=== PATIENT | female | born 1990 | race Caucasian/White ===

== ENCOUNTER 2016-07-28 12:22 | Emergency (ER) | payer MEDICAID ==
[~2016-07-28] VITALS: Ht 160 cm; Wt 64.9 kg
[2016-07-28 12:27] VITALS: BP 115/64
== END 2016-07-28 13:03 | disposition home or self-care (01) ==
LOC: ER 12:24
DX: O99.012 Anemia complicating pregnancy, second trimester (principal); Z3A.27 27 weeks gestation of pregnancy
CPT/HCPCS: 93005

== ENCOUNTER → 2016-07-29 | Outpatient (CLI) | payer MEDICAID ==
[2016-07-29 10:18] LABS: Basophils # (auto) 0 uL; Basophils % (auto) 0.1 % (0.0-2.0); Eosinophils # (auto) 0.2 uL; Eosinophils % (auto) 1.6 % (0.0-7.0); Hemoglobin 11.4 g/dL (12.2-16.2); Lymphocytes % (auto) 18.6 % (10.0-50.0); Mean Corpuscular Hgb Conc. 32.5 g/dL (32.0-36.0); Mean Corpuscular Volume 89.3 fL (80.0-100.0); Mean Platelet Volume 8.3 fL (7.4-10.4); Monocytes # (auto) 0.7 uL; Neutrophils % (auto) 73.7 % (37.0-80.0); Platelet Count (auto) 247 10^3/uL (140-450); Red Cell Distribution Width 16.1 % (11.6-16.0); White Blood Cell 10.9 10^3/uL (4.4-10.8)
== END | disposition home or self-care (01) ==
LOC: LAB 10:00
PROVIDERS: ATTEND Specialist
DX: O99.810 Abnormal glucose complicating pregnancy (principal); Z34.00 Encounter for supervision of normal first pregnancy, unspecified trimester
CPT/HCPCS: 36415; 82951; 85025; 85049

== ENCOUNTER → 2016-08-01 | Outpatient (CLI) | payer MEDICAID | END | disposition home or self-care (01) | LOC: LAB 13:20 | PROVIDERS: ATTEND Specialist | DX: Z34.80 Encounter for supervision of other normal pregnancy, unspecified trimester (principal); R55 Syncope and collapse | CPT/HCPCS: 36415; 84439; 84443; 84481 ==

== ENCOUNTER → 2016-09-03 | Outpatient (CLI) | payer MEDICAID | END | disposition home or self-care (01) | LOC: LAB 14:29 | PROVIDERS: ATTEND Obstetrics & Gynecology | DX: Z34.00 Encounter for supervision of normal first pregnancy, unspecified trimester (principal) | CPT/HCPCS: 36415; 83036; 84439; 84443; 84481 ==

== ENCOUNTER 2016-10-07 18:28 | Observation (INO) | payer MEDICAID | END 2016-10-07 19:47 | disposition home or self-care (01) | DRG 566 | LOC: LDRP 18:28 | PROVIDERS: ADMIT Obstetrics & Gynecology; ATTEND Obstetrics & Gynecology | DX: O26.893 Other specified pregnancy related conditions, third trimester (principal); R10.2 Pelvic and perineal pain; R10.9 Unspecified abdominal pain; Z3A.37 37 weeks gestation of pregnancy | CPT/HCPCS: 59025; 81002; G0378 ==

== ENCOUNTER → 2016-10-23 | Outpatient (CLI) | payer MEDICAID ==
[~2016-10-23] MED LIST: CARB45TA PO; FERR-7 PO
[2016-10-23 10:18] LABS: Basophils # (auto) 0 uL; Basophils % (auto) 0.3 % (0.0-2.0); Eosinophils # (auto) 0.6 uL; Eosinophils % (auto) 4.2 % (0.0-7.0); Hematocrit 28.1 % (36.0-46.0); Hemoglobin 9.3 g/dL (12.2-16.2); Lymphocytes # (auto) 2.5 uL; Lymphocytes % (auto) 17.5 % (10.0-50.0); Mean Corpuscular Hemoglobin 28.6 pg (28.0-32.0); Mean Corpuscular Hgb Conc. 32.9 g/dL (32.0-36.0); Mean Platelet Volume 7.2 fL (7.4-10.4); Monocytes # (auto) 0.7 uL; Monocytes % (auto) 4.8 % (0.0-12.0); Neutrophils # (auto) 10.4 uL; Neutrophils % (auto) 73.2 % (37.0-80.0); Platelet Count (auto) 579 10^3/uL (140-450); Red Cell Distribution Width 15.2 % (11.6-16.0); White Blood Cell 14.2 10^3/uL (4.4-10.8)
[2016-10-23 10:43] LABS: BUN/Creatinine Ratio 23.8; Bilirubin, Total 0.2 mg/dL (0.2-1.0); Calcium 8.6 mg/dL (8.5-10.1); Potassium 4.1 mmol/L (3.5-5.1); Total Protein 7.6 g/dL (6.4-8.2)
== END | disposition home or self-care (01) ==
LOC: LAB 09:29
PROVIDERS: ATTEND Specialist
DX: T78.40XA Allergy, unspecified, initial encounter (principal)
CPT/HCPCS: 36415; 80053; 85025

== ENCOUNTER 2025-05-27 17:28 | Inpatient (IN) | payer MEDICAID ==
[~2025-05-27] VITALS: Ht 160 cm; Wt 62.8 kg
[2025-05-27] MEDS: ACETAMINOPHEN 325 MG TAB PO ONE (17:45)
--- NOTE | 2025-05-27 18:08 | ED.PDOC ---
History of Present Illness HPI Comments 34 y.o female presents to the ED for a chief complaint of ongoing productive cough associated with congestion and a fever that started on 05/19/25. Patient reports she was seen 4 days after symptoms presented, states she was given medication however states symptoms have worsened. She states she is unable to ge t herself out of bed, cough has became persistent, and have heavy labored breathing. Additionally, she mentions menstrual cycle is irregular this month which is new onset as she is always regular. She mentions starting her menstrual cycle on 05/06/25- 05/11/25 and then again on /- . Chief Complaint: Flu like Time Seen by MD: 17:47 Primary Care Provider: JAMAAL Reviewed Notes: Nurses Notes, Medications, Allergies Allergies: Coded Allergies: Penicillins (Verified Allergy, Unknown, 05/27/25) Home Meds Reported Medications Iron (Feosol) 45 Mg Tab, 45 MG PO, TAB 10/14/16 Ferrous Sulfate (Iron) 325 Mg Tab, 325 MG PO, TAB 10/14/16 Information Source: Patient Mode of Arrival: Ambulatory Severity: Moderate Timing: Weeks Duration: Since onset Past Medical History PAST MEDICAL HISTORY: Denies Surgical History: Denies all surgeries LAY MIDWIFE History: No Pertinent LAY MIDWIFE History Family History Family History: Unobtainable Social History Smoker: Non-Smoker Alcohol: Denies ETOH Use Drugs: Denies Drug Use Lives In: Home Constitutional: reports: malaise; denies: chills, diaphoresis, fatigue, fever, sweats, weakness, others EENTM: denies: blurred vision, double vision, ear bleeding, ear discharge, ear drainage, ear pain, ear ringing, eye pain, eye redness, hearing loss, mouth pain, mouth swelling, nasal discharge, nose bleeding, nose congestion, nose pain, photophobia, tearing, throat pain, throat swelling, voice changes, others Respiratory: reports: cough; denies: hemoptysis, orthopnea, SOB at rest, shortness of breath, SOB with excertion, stridor, wheezing, others Cardiovascular: denies: chest pain, dizzy spells, diaphoresis, Dyspnea on exertion, edema, irregular heart beat, left arm pain, lightheadedness, palpitations, PND, syncope, others Gastrointestinal: denies: abdomen distended, abdominal pain, blood streaked bowels, constipated, diarrhea, dysphagia, difficulty swallowing, hematemesis, melena, nausea, poor appetite, poor fluid intake, rectal bleeding, rectal pain, vomiting, others Genitourinary: reports: abnormal vagina bleeding; denies: burning, dyspareunia, dysuria, flank pain, frequency, hematuria, incontinence, pain, , vagina discharge, urgency, others Neurological: denies: dizziness, fainting, headache, left sided numbness, left sided weakness, numbness, paresthesia, pre-existing deficit, right sided numbness, right sided weakness, seizure, speech problems, tingling, tremors, weakness, others Musculoskeletal: denies: back pain, gout, joint pain, joint swelling, muscle pain, muscle stiffness, neck pain, others Integumetry: denies: bruises, change in color, change in hair/nails, dryness, laceration, lesions, lumps, rash, wounds, others Allergic/Immunocompromised: denies: Difficulty Healing, Frequent Infections, Hives, Itching, others Hematologic/Lymphatic: denies: anemia, blood clots, easy bleeding, easy bruising, swollen glands, others Endocrine: denies: excessive hunger, excessive sweating, excessive thirst, excessive urination, flushing, intolerance to cold, intolerance to heat, unexplained weight gain, unexplained weight loss, others Psychiatric: denies: anxiety, bipolar disorder, depression, hopeless, panic disorder, schizophrenia, sleepless, suicidal, others All Other Systems: Reviewed and Negative Physical Exam General Appearance: No Apparent Distress, Normal HEENT: Normal ENT Inspection, Pharynx Normal, TMs Normal Neck: Full Range of Motion, Non-Tender, Normal, Normal Inspection Respiratory: Chest Non-Tender, Lungs Clear, No Accessory Muscle Use, No Respiratory Distress, Normal Breath Sounds Cardiovascular: No Edema, No JVD, No Murmur, No Gallop, Normal Peripheral Pulses, Regular Rate/Rhythm Breast Exam: Deferred Gastrointestinal: No Organomegaly, Non Tender, No Pulsatile Mass, Normal Bowel Sounds, Soft Genitalia: Deferred Pelvic: Deferred Rectal: Deferred Extremities: No calf tenderness, Normal capillary refill, Normal inspection, Normal range of motion, Non-tender, No pedal edema Musculoskeletal : Apperance: Normal Neurologic: Alert, production tech II-XII nml as Tested, No Motor Deficits, Normal Affect, Normal Mood, No Sensory Deficits Cerebellar Function: Normal Reflexes: Normal Skin: Dry, Normal Color, Warm Lymphatic: No Adenopathy Was a procedure done? Was a procedure done?: No Differential Dx Considerations may include: Viral syndrome, Dehydration, bronchitis, pneumonia, influenza X-Ray, Labs, Meds, VS Vital Signs Date Time Temp Pulse Resp B/P (MAP) Pulse Ox O2 Delivery O2 Flow Rate FiO2 05/27/25 17:45 100.7 05/27/25 17:31 100.7 106 18 117/71 93 100.7 Lab Test 05/27/25 18:19 Range/Units White Blood Count 6.8 4.4-10.8 10^3/uL Red Blood Count 4.57 4.0-5.20 10^6/uL Hemoglobin 12.5 12.2-16.2 g/dL Hematocrit 37.2 36.0-46.0 % Mean Corpuscular Volume 81.3 80.0-100.0 fL Mean Corpuscular Hemoglobin 27.2 L 28.0-32.0 pg Mean Corpuscular Hemoglobin Concent 33.5 32.0-36.0 g/dL Red Cell Distribution Width 15.2 H 11.8-14.3 % Platelet Count 325 140-450 10^3/uL Mean Platelet Volume 9.0 6.9-10.8 fL Neutrophils (%) (Auto) 84.7 H 37.0-80.0 % Lymphocytes (%) (Auto) 8.9 L 10.0-50.0 % Monocytes (%) (Auto) 5.8 0.0-12.0 % Eosinophils (%) (Auto) 0.2 0.0-7.0 % Basophils (%) (Auto) 0.4 0.0-2.0 % Neutrophils # (Auto) 5.8 1.6-8.6 10 ^3/uL Lymphocytes # (Auto) 0.6 0.4-5.4 10 ^3/uL Monocytes # (Auto) 0.4 0-1.3 10 ^3/uL Eosinophils # (Auto) 0 0-0.8 10 ^3/uL Basophils # (Auto) 0 0-0.2 10 ^3/uL Nucleated Red Blood Cells 0.2 % Sodium Level 135 L 136-145 mmol/L Potassium Level 4.1 3.5-5.1 mmol/L Chloride Level 94 L 98-107 mmol/L Carbon Dioxide Level 28 20-31 mmol/L Anion Gap 13 5-15 Blood Urea Nitrogen 10 9-23 mg/dL Creatinine 0.83 0.550-1.02 mg/dL Glomerular Filtration Rate Calc 95 >90 mL/min BUN/Creatinine Ratio 12.0 10.0-20.0 Serum Glucose 100 74-106 mg/dL Lactic Acid Level 1.3 0.4-2.0 mmol/L Calcium Level 9.1 8.7-10.4 mg/dL Troponin I High Sensitivity < 3 L </=34 ng/L Current Medications Medications (Trade) Dose Ordered Sig/Thierno Route Start Time Stop Time Status Last Admin Sodium Chloride 1,000 ml @ 1,000 mls/hr Q1H ONCE IV 05/27/25 18:00 05/27/25 18:59 DC 05/27/25 18:39 Ondansetron HCl (Zofran) 4 mg ONCE ONCE IV 05/27/25 18:00 05/27/25 18:02 DC 05/27/25 18:41 Sodium Chloride 1,000 ml @ 1,000 mls/hr Q1H ONCE IV 05/27/25 18:00 05/27/25 18:59 DC 05/27/25 19:53 Ceftriaxone Sodium 50 ml @ 100 mls/hr ONCE ONCE IV 05/27/25 18:00 05/27/25 18:29 DC 05/27/25 18:41 Acetaminophen (Ofirmev) 1,000 mg ONCE ONCE IV 05/27/25 18:00 05/27/25 18:02 DC 05/27/25 18:45 Time of 1ST Reevaluation: 18:07 Reevaluation 1ST: Unchanged Patient Education/Counseling: Diagnosis, Treatment, Prognosis Family Education/Counseling: No Family Present SEPSIS Sepsis Screen Date sepsis recognized/suspect: May 27, 2025 Time Sepsis recognized/suspect: 1730 Recent Procedure: No On Antibiotic Therapy: No Respiratory Rate >20: No Heart Rate >90: Yes Temp<36 C (96.8 F) or >38.3 C: Yes SBP <90 or MAP <65 mmHG: No New Acute Mental Status Change: No Is the patient on CPAP, BIPAP,: No Physician Orders Urinalysis (05/27/25 17:58) Blood Culture (05/27/25 17:58) Test, Urine (05/27/25 17:58) Chest Portable (05/27/25 20:01) Vital Signs Date Time Temp Pulse Resp B/P (MAP) Pulse Ox O2 Delivery O2 Flow Rate FiO2 05/27/25 17:45 100.7 05/27/25 17:31 100.7 106 18 117/71 93 100.7 Laboratory Tests Test 05/27/25 18:19 Lactic Acid Level 1.3 mmol/L (0.4-2.0) White Blood Count 6.8 10^3/uL (4.4-10.8) Medications Medications Dose Ordered Sig/Thierno Route Start Time Stop Time Status Last Admin Dose Admin Acetaminophen 1,000 mg ONCE ONCE IV 05/27/25 18:00 05/27/25 18:02 DC 05/27/25 18:45 Ceftriaxone Sodium 50 ml @ 100 mls/hr ONCE ONCE IV 05/27/25 18:00 05/27/25 18:29 DC 05/27/25 18:41 Ondansetron HCl 4 mg ONCE ONCE IV 05/27/25 18:00 05/27/25 18:02 DC 05/27/25 18:41 Sodium Chloride 1,000 ml @ 1,000 mls/hr Q1H ONCE IV 05/27/25 18:00 05/27/25 18:59 DC 05/27/25 18:39 Sodium Chloride 1,000 ml @ 1,000 mls/hr Q1H ONCE IV 05/27/25 18:00 05/27/25 18:59 DC 05/27/25 19:53 Departure 1 Departure Time of Disposition: 20:02 (Feel with a intractable fever and cough. Patient does not appear septic. Patient with multiple ER visits in the continues to worsen. We will admit patient for further workup and expert consultation) Impression: Primary Impression: Fever Additional Impressions: Generalized weakness Cough Pneumonia due to suspected gram-negative bacteria Disposition: ADMITTED INPATIENT Admit to: Med Surg Condition: Guarded Critical Care Note Critical Care Time?: No Stability Stability form required: No I personally scribed for BESS ESTRADA MD ([email or web address]) on 05/27/25 at 18:08. Electronically submitted by Simran Sanders ([facility]). BESS ESTRADA MD May 27, 2025 18:08
[2025-05-27] MEDS: ONDANSETRON HCL 4 MG/2 ML VIAL ONE (18:38)
[2025-05-27] MEDS: SODIUM CHLORIDE 0.9% 1,000 ML IV ONE ×2 (18:39→19:53)
[2025-05-27] MEDS: ONDANSETRON HCL 4 MG/2 ML VIAL IV ONE (18:41)
[2025-05-27] MEDS: ACETAMINOPHEN IV 100 ML IV ONE (18:45)
[2025-05-27] MEDS: ACETAMINOPHEN IV 1000 MG/100ML (10MG/ML) IV ONE (18:45)
[2025-05-27 19:00] LABS: Hematocrit 37.2 % (36.0-46.0); Hemoglobin 12.5 g/dL (12.2-16.2); Mean Corpuscular Hemoglobin 27.2 pg (28.0-32.0); Mean Corpuscular Volume 81.3 fL (80.0-100.0); Nucleated Red Blood Cells % 0.2 %
[2025-05-27 19:06] LABS: Potassium 4.1 mmol/L (3.5-5.1)
[2025-05-27 19:07] LABS: Anion Gap 13 (5-15); Carbon Dioxide 28 mmol/L (20-31)
[2025-05-27 19:08] LABS: Calcium 9.1 mg/dL (8.7-10.4)
[2025-05-27 19:12] LABS: BUN/Creatinine Ratio 12.0 (10.0-20.0); Blood Urea Nitrogen 10 mg/dL (9-23); Glucose 100 mg/dL (74-106)
[2025-05-27 19:27] LABS: Chloride 94 mmol/L (98-107); Sodium 135 mmol/L (136-145)
[2025-05-27 20:29] LABS: Urine Protein, UAD TRACE (Negative)
--- NOTE | 2025-05-27 21:02 | DVH ---
CHEST RADIOGRAPH Indication: cough Technique: Single frontal view of the chest was obtained COMPARISON: None FINDINGS: Focal airspace disease within the left mid to lower lung likely within the left lower lobe. Trace left-sided pleural effusion. Right lung is clear. Cardiac silhouette and ad are within normal limits. Bones and soft tissues demonstrate no significant abnormality. IMPRESSION: Left lower lobe pneumonia.
--- NOTE | 2025-05-27 22:49 | DVHHPRES ---
History of Present Illness Resident Creating Document: TATI KILLIAN RESIDENT History of Present Illness 34-year-old female presents to the ER with a chief complaint of fever, chills, productive cough for the past week. Patient reports that she started to experience fever, chills, hot and cold, along with muscle aches, bilateral knee pain, shooting pains, which worsened and patient started to experience cough with whitish phlegm. She does not have a PCP, she went to the urgent care was prescribed steroids and cough suppressant which he never took. She denies any traveling history, recent sick contacts or anyone sick at home. Denies orthopnea or PND. Also reports suprapubic pain on coughing but no dysuri a, discharge or foul-smelling. Also reports irregular periods for the 1st time during the sickness episode, currently she is spotting Past medical history: Denies past surgical history: Denies Home medication: Denies PCP: None Social history: Denies smoking, drug use, alcohol use Patient seen and examined. No acute distress. Review of Systems Respiratory: Cough, Shortness of breath Allergies: Coded Allergies: Penicillins (Verified Allergy, Unknown, 05/27/25) Exam Vital Signs Vital Signs Date Time Temp Pulse Resp B/P (MAP) Pulse Ox O2 Delivery O2 Flow Rate FiO2 05/27/25 17:45 100.7 05/27/25 17:31 106 18 117/71 93 General Appearance: Alert, Oriented X3, Cooperative, No acute distress HEENT: Atraumatic Respiratory: Clear to auscultation, Normal air movement Cardiovascular: Normal S1 (Tachycardic) Abdominal: Normal bowel sounds, No tenderness Extremities: No edema Labs/Xrays Labs Test 05/27/25 18:19 05/27/25 18:11 Range/Units White Blood Count 6.8 4.4-10.8 10^3/uL Red Blood Count 4.57 4.0-5.20 10^6/uL Hemoglobin 12.5 12.2-16.2 g/dL Hematocrit 37.2 36.0-46.0 % Mean Corpuscular Volume 81.3 80.0-100.0 fL Mean Corpuscular Hemoglobin 27.2 L 28.0-32.0 pg Mean Corpuscular Hemoglobin Concent 33.5 32.0-36.0 g/dL Red Cell Distribution Width 15.2 H 11.8-14.3 % Platelet Count 325 140-450 10^3/uL Mean Platelet Volume 9.0 6.9-10.8 fL Neutrophils (%) (Auto) 84.7 H 37.0-80.0 % Lymphocytes (%) (Auto) 8.9 L 10.0-50.0 % Monocytes (%) (Auto) 5.8 0.0-12.0 % Eosinophils (%) (Auto) 0.2 0.0-7.0 % Basophils (%) (Auto) 0.4 0.0-2.0 % Neutrophils # (Auto) 5.8 1.6-8.6 10 ^3/uL Lymphocytes # (Auto) 0.6 0.4-5.4 10 ^3/uL Monocytes # (Auto) 0.4 0-1.3 10 ^3/uL Eosinophils # (Auto) 0 0-0.8 10 ^3/uL Basophils # (Auto) 0 0-0.2 10 ^3/uL Nucleated Red Blood Cells 0.2 % Sodium Level 135 L 136-145 mmol/L Potassium Level 4.1 3.5-5.1 mmol/L Chloride Level 94 L 98-107 mmol/L Carbon Dioxide Level 28 20-31 mmol/L Anion Gap 13 5-15 Blood Urea Nitrogen 10 9-23 mg/dL Creatinine 0.83 0.550-1.02 mg/dL Glomerular Filtration Rate Calc 95 >90 mL/min BUN/Creatinine Ratio 12.0 10.0-20.0 Serum Glucose 100 74-106 mg/dL Lactic Acid Level 1.3 0.4-2.0 mmol/L Calcium Level 9.1 8.7-10.4 mg/dL Troponin I High Sensitivity < 3 L </=34 ng/L Urine Color Yellow Yellow Urine Clarity Clear Clear Urine pH 7.5 5.0-9.0 Urine Specific [place] 1.015 1.001-1.035 Urine Protein Trace H Negative Urine Ketones Trace Negative Urine Blood 2+ H Negative /uL Urine Nitrite Negative Negative Urine Bilirubin Negative Negative Urine Urobilinogen Normal Negative mg/dL Urine Leukocyte Esterase 2+ Negative /uL Urine RBC 1 0 - 4 /hpf Urine Microscopic WBC 16 H 0-5 /HPF Urine Squamous Epithelial Cells Few <5 /hpf Urine Bacteria None seen None Seen /hpf Urine Glucose Normal Normal mg/dL Urine Test Negative Negative SEPSIS Sepsis Screen Date sepsis recognized/suspect: May 27, 2025 Time Sepsis recognized/suspect: 1730 Recent Procedure: No On Antibiotic Therapy: No Respiratory Rate >20: No Heart Rate >90: Yes Temp<36 C (96.8 F) or >38.3 C: Yes SBP <90 or MAP <65 mmHG: No New Acute Mental Status Change: No Is the patient on CPAP, BIPAP,: No Physician Orders Blood Culture (05/27/25 17:58) Chest Portable (05/27/25 20:01) Vital Signs Date Time Temp Pulse Resp B/P (MAP) Pulse Ox O2 Delivery O2 Flow Rate FiO2 05/27/25 17:45 100.7 05/27/25 17:31 100.7 106 18 117/71 93 100.7 Laboratory Tests Test 05/27/25 18:19 Lactic Acid Level 1.3 mmol/L (0.4-2.0) White Blood Count 6.8 10^3/uL (4.4-10.8) Medications Medications Dose Ordered Sig/Thierno Route Start Time Stop Time Status Last Admin Dose Admin Acetaminophen 1,000 mg ONCE ONCE IV 05/27/25 18:00 05/27/25 18:02 DC 05/27/25 18:45 1,000 MG Ceftriaxone Sodium 50 ml @ 100 mls/hr ONCE ONCE IV 05/27/25 18:00 05/27/25 18:29 DC 05/27/25 18:41 100 MLS/HR Ondansetron HCl 4 mg ONCE ONCE IV 05/27/25 18:00 05/27/25 18:02 DC 05/27/25 18:41 4 MG Sodium Chloride 1,000 ml @ 1,000 mls/hr Q1H ONCE IV 05/27/25 18:00 05/27/25 18:59 DC 05/27/25 18:39 1,000 MLS/HR Sodium Chloride 1,000 ml @ 1,000 mls/hr Q1H ONCE IV 05/27/25 18:00 05/27/25 18:59 DC 05/27/25 19:53 1,000 MLS/HR Assessment/Plan Assessment/Plan Sepsis secondary to pneumonia, Gram-positive and negative Ruled out COVID influenza Continue IV ceftriaxone, azithromycin COVID/influenza negative Duo nebs Respiratory culture, blood culture ordered Chest x-ray shows left lower opacity Abnormal uterine bleeding Pelvic ultrasound Monitor H&H Needs PCP: Consult neonatal intensive care nurse Regular diet Plan discussed with patient, mother at bedside in which all questions have been answered Case discussed with Dr. Colunga Plan discussed with: Patient Date of Service: May 27, 2025 Billing Provider: JOHN COLUNGA MD Common Visit Codes: [id number] INP/OBS CARE (HIGH) TATI KILLIAN RESIDENT May 27, 2025 22:49
[2025-05-27] MEDS: AZITHROMYCIN 500MG/250ML 250 ML IV ONE (23:57)
[2025-05-28] VITALS (17 sets, daily range): BP systolic 96–129; BP diastolic 56–72; PULSE 78–115; RESP 14–20; TEMP 97.8–102.8; O2SAT 92–100
[2025-05-28 01:02] LABS: COVID19 ANTIGEN SOFIA FIA NEGATIVE (NEGATIVE)
[2025-05-28] MEDS ORDERED: ACETAMINOPHEN 500 MG TAB or CAP PO PRN (01:30)
[2025-05-28] MEDS ORDERED: MORPHINE SULFATE INJ 2 MG/ml SYRG IV PRN (01:30)
[2025-05-28] MEDS ORDERED: HYDROcodone-ACET 5/325MG TAB PO PRN (01:30)
[2025-05-28] MEDS: AZITHROMYCIN 500MG/250ML 250 ML IV ONE ×2 (01:37→09:32)
[2025-05-28] MEDS ORDERED: ALBUTEROL SULF 2.5 MG/0.5ML(0.5%) NEB SOLN NEB SCH (02:00)
[2025-05-28] MEDS ORDERED: IPRATROPIUM BROM 0.5 MG/2.5ML INH SOL NEB SCH (02:00)
[2025-05-28] MEDS: ACETAMINOPHEN 325 MG TAB PO ONE ×2 (06:18→06:31)
[2025-05-28 08:32] LABS: INR 1.13 (0.9-1.15); Partial Thromboplastin Time 30.7 SEC (24.5-34.5); Prothrombin Time 11.8 sec (9.3-11.8)
[2025-05-28 08:35] LABS: Alanine Aminotransferase 11 U/L (7-40); Albumin 3.5 g/dL (3.2-4.8); Alkaline Phosphatase 52 U/L (46-116); Anion Gap 13 (5-15); BUN/Creatinine Ratio 9.4 (10.0-20.0); Blood Urea Nitrogen 6 mg/dL (9-23); Calcium 8.0 mg/dL (8.7-10.4); Carbon Dioxide 27 mmol/L (20-31); Chloride 99 mmol/L (98-107); Glucose 93 mg/dL (74-106); Magnesium 2.1 mg/dL (1.6-2.6); Potassium 3.1 mmol/L (3.5-5.1); Sodium 139 mmol/L (136-145); Total Protein 6.5 g/dL (5.7-8.2)
[2025-05-28 08:36] LABS: Bilirubin, Total 0.3 mg/dL (0.2-1.0)
[2025-05-28] MEDS: IPRATROPIUM BROM 0.5 MG/2.5ML INH SOL NEB SCH (09:07)
[2025-05-28] MEDS: ALBUTEROL SULF 2.5 MG/0.5ML(0.5%) NEB SOLN NEB SCH (09:07)
[2025-05-28] MEDS: AZITHROMYCIN 500MG/250ML 250 ML IV SCH (09:45)
[2025-05-28] MEDS: POTASSIUM EFFERVESENT TAB 25 MEQ ONE (09:48)
[2025-05-28] MEDS: POTASSIUM EFFERVESENT TAB 25 MEQ PO ONE (09:53)
[2025-05-28 10:14] LABS: Hematocrit 30.1 % (36.0-46.0); Hemoglobin 10.2 g/dL (12.2-16.2); Mean Corpuscular Hemoglobin 27.4 pg (28.0-32.0); Mean Corpuscular Volume 80.8 fL (80.0-100.0); Nucleated Red Blood Cells % 0.1 %
[2025-05-28] MEDS: DOXYCYCLINE 100MG/100ML 100 ML IV ONE (13:36)
[2025-05-28] MEDS: DOXYCYCLINE 100MG/100ML 100 ML IV SCH (14:17)
--- NOTE | 2025-05-28 14:43 | DVHPNRES ---
Progress Note Date Seen: May 28, 2025 Resident Creating Document: GRISEL ALFONSO RESDIENT Medical Necessity Reason Pt with a Central, PICC or Fol: No Subjective Review of Systems 34-year-old female presents to the ER with a chief complaint of fever, chills, productive cough for the past week. Patient reports that she started to experience fever, chills, hot and cold, along with muscle aches, bilateral knee pain, shooting pains, which worsened and patient started to experience cough with whitish phlegm. She does not have a PCP, she went to the urgent care was prescribed steroids and cough suppressant which he never took. She denies any traveling history, recent sick contacts or anyone sick at home. Denies orthopnea or PND. Also reports suprapubic pain on coughing but no dysuria, discharge or foul-smelling. Also reports irregular periods for the 1st time during the sickness episode, currently she is spotting Past medical history: Denies past surgical history: Denies Home medication: Denies PCP: None Social history: Denies smoking, drug use, alcohol use On 05/28, the patient is seen and examined at the bedside. Patient is feeling better since admission but still complaining of cough and generalized body pain. Objective vital signs Vital Sign Date Time Temp Pulse Resp B/P (MAP) Pulse Ox O2 Delivery O2 Flow Rate FiO2 05/28/25 13:28 104 18 100 05/28/25 12:04 98.8 96/60 (72) 98.8 05/28/25 09:30 Room Air* 0 21 Total Intake and Output 05/27/25 05/27/25 05/28/25 15:00 23:00 07:00 Intake Total 1050 ml Balance 1050 ml medications Current Medications Medications Dose Ordered Sig/Thierno Route Start Time Stop Time Status Last Admin Dose Admin Ceftriaxone Sodium 50 ml @ 100 mls/hr DAILY@09 IV 05/28/25 09:00 05/28/25 08:59 100 MLS/HR Acetaminophen 500 mg Q4HPRN PRN PO 05/28/25 01:30 Acetaminophen/ Hydrocodone Bitart 1 tab Q4HPRN PRN PO 05/28/25 01:30 Morphine Sulfate 1 mg Q4HPRN PRN IV 05/28/25 01:30 Albuterol 2.5 mg Q6HR NEB 05/28/25 06:00 05/28/25 09:07 2.5 MG Ipratropium [place] 0.5 mg Q6HR NEB 05/28/25 06:00 05/28/25 13:21 0.5 MG Doxycycline Hyclate 100 ml @ 50 mls/hr Q12H IV 05/28/25 12:30 05/28/25 14:17 50 MLS/HR Examination General Appearance: Alert, Oriented X3, Cooperative, No acute distress HEENT: Atraumatic, PERRLA, EOMI, Mucous membrane moist/pink Respiratory: Left lower zone crackles Cardiovascular: Regular rate, Normal S1, Normal S2, No murmurs, no chest wall tenderness Abdominal: Normal bowel sounds, Soft, No tenderness, No hepatospenomegaly, No masses Extremities: No clubbing, No cyanosis, No edema, Normal pulses, No tenderness/swelling Skin: No rashes, No breakdown, No significant lesion Neuro: Normal gait, Normal speech, Strength at 5/5 X4 ext, Normal tone, Sensation intact, Cranial nerves 3-12 NL, Reflexes 2+ Psych/Mental Status: Mental status NL, Mood NL laboratory and microbiology Laboratory Tests 05/28/25 10:01 05/28/25 07:39 Test 05/28/25 07:39 Range/Units Serum Glucose 93 74-106 mg/dL Microbiology Date/Time Source Procedure Growth Status 05/28/25 07:34 Nose MRSA Screen - Final Complete Labs and/or images reviewed: Labs reviewed by me, Image(s) reviewed by me Problem List/Assessment/Plan Problem List/Assessment/Plan Sepsis, due to pneumonia Pneumonia, likely due to Gram-positive/Gram-negative pneumonia Abnormal uterine bleeding Precipitous hemoglobin dropped, likely due to hemodilution Hypokalemia Asymptomatic bacteriuria Ruled out COVID-19/influenza * Chest x-ray shows left lower lobe zone infiltration Plan/recommendation: * Empiric antibiotic Rocephin and azithromycin * IV fluid * Pain management * Sputum culture/blood culture * Pelvic ultrasound * Breathing treatment DIET: Regular with a DVT PROPHYLAXIS: Lovenox CODE STATUS: Goal of care discussed for more than 18 minutes, full code DISPOSITION: Med/surge Patient's status and plan discussed with the patient. Case discussed with Dr. Nixon. Plan discussed with: Patient, Other (Mother and RN) My Orders My Orders Orders - GRISEL ALFONSO RESDIENT Procedure Category Date Status Time Doxycycline PHA 05/28/25 In Process 100mg/100ml 12:30 Sodium Chloride 0.9% PHA 05/28/25 In Process 12:30 Date of Service: May 28, 2025 Billing Provider: EZIO ALBERT MD Common Visit Codes: [id number] INP/OBS CARE(HIGH) GRISEL ALFONSO RESDIAMONDENT May 28, 2025 14:43 EZIO ALBERT MD May 29, 2025 16:32
[2025-05-28] MEDS ORDERED: ONDANSETRON HCL 4 MG/2 ML VIAL IV PRN (17:00)
[2025-05-28] MEDS: ENOXAPARIN SOD 40 MG/0.4 ML SYRINGE SC ONE (18:02)
[2025-05-28] MEDS: SODIUM CHLORIDE 0.9% 1,000 ML IV ONE (23:16)
[2025-05-29] VITALS (15 sets, daily range): BP systolic 94–113; BP diastolic 56–71; PULSE 70–103; RESP 14–19; TEMP 97.3–99.6; O2SAT 93–100
[2025-05-29 06:33] LABS: Hematocrit 27.8 % (36.0-46.0); Hemoglobin 9.5 g/dL (12.2-16.2); Mean Corpuscular Hemoglobin 27.6 pg (28.0-32.0); Mean Corpuscular Volume 80.5 fL (80.0-100.0); Nucleated Red Blood Cells % 0.1 %
[2025-05-29 06:44] LABS: Alanine Aminotransferase 11 U/L (7-40); Albumin 3.4 g/dL (3.2-4.8); Alkaline Phosphatase 52 U/L (46-116); Anion Gap 11 (5-15); BUN/Creatinine Ratio 11.3 (10.0-20.0); Carbon Dioxide 28 mmol/L (20-31); Chloride 101 mmol/L (98-107); Glucose 88 mg/dL (74-106); Potassium 3.5 mmol/L (3.5-5.1); Sodium 140 mmol/L (136-145); Total Protein 6.4 g/dL (5.7-8.2)
[2025-05-29 06:45] LABS: Bilirubin, Total 0.3 mg/dL (0.2-1.0); Blood Urea Nitrogen 7 mg/dL (9-23)
[2025-05-29 06:46] LABS: Calcium 8.3 mg/dL (8.7-10.4)
[2025-05-29] MEDS: ENOXAPARIN SOD 40 MG/0.4 ML SYRINGE SC SCH (10:00)
[2025-05-29] MEDS ORDERED: guaiFENesin-CODEINE Liq 5 ML UD PO PRN (11:45)
[2025-05-29] MEDS ORDERED: PROMETHAZINE HCL 6.25 MG/5 ML ORAL SYRUP PO PRN (12:00)
[2025-05-29 12:55] LABS: Iron 22.0 ug/dL (50-170); Total Iron Binding Capacity 219.0 ug/dL (250-425)
--- NOTE | 2025-05-29 12:58 | DVH ---
CHEST RADIOGRAPH Indication: Pneumonia Technique: Single frontal view of the chest was obtained Comparison: XY CHEST PORTABLE on DOS: 05/27/25, XY CHEST PORTABLE on DOS: 05/27/25 FINDINGS: Focal airspace disease within the left mid to lower lung likely within the left lower lobe. Trace left-sided pleural effusion. Right lung is clear. Cardiac silhouette and ad are within normal limits. Bones and soft tissues demonstrate no significant abnormality. IMPRESSION: 1. Left lower lobe pneumonia.
--- NOTE | 2025-05-29 15:07 | DVHPNRES ---
Progress Note Date Seen: May 29, 2025 Resident Creating Document: GRISEL ALFONSO RESDIENT Medical Necessity Reason Pt with a Central, PICC or Fol: No Subjective Review of Systems 34-year-old female presents to the ER with a chief complaint of fever, chills, productive cough for the past week. Patient reports that she started to experience fever, chills, hot and cold, along with muscle aches, bilateral knee pain, shooting pains, which worsened and patient started to experience cough with whitish phlegm. She does not have a PCP, she went to the urgent care was prescribed steroids and cough suppressant which he never took. She denies any traveling history, recent sick contacts or anyone sick at home. Denies orthopnea or PND. Also reports suprapubic pain on coughing but no dysuria, discharge or foul-smelling. Also reports irregular periods for the 1st time during the sickness episode, currently she is spotting Past medical history: Denies past surgical history: Denies Home medication: Denies PCP: None Social history: Denies smoking, drug use, alcohol use On 05/28, the patient is seen and examined at the bedside. Patient is feeling better since admission but still complaining of cough and generalized body pain. On 05/29, the patient seen and examined at bedside. Patient is still complaining of cough, shortness of breaths and chest pain. Objective vital signs Vital Sign Date Time Temp Pulse Resp B/P (MAP) Pulse Ox O2 Delivery O2 Flow Rate FiO2 05/29/25 12:45 97.9 86 19 94/56 (69) 96 97.9 05/29/25 10:00 Room Air* 0 21 Total Intake and Output 05/28/25 05/28/25 05/29/25 15:00 23:00 07:00 Intake Total 500 ml 305 ml Output Total 6 ml Balance 494 ml 305 ml medications Current Medications Medications Dose Ordered Sig/Thierno Route Start Time Stop Time Status Last Admin Dose Admin Ceftriaxone Sodium 50 ml @ 100 mls/hr DAILY@09 IV 05/28/25 09:00 05/29/25 10:08 100 MLS/HR Acetaminophen 500 mg Q4HPRN PRN PO 05/28/25 01:30 Acetaminophen/ Hydrocodone Bitart 1 tab Q4HPRN PRN PO 05/28/25 01:30 Morphine Sulfate 1 mg Q4HPRN PRN IV 05/28/25 01:30 Albuterol 2.5 mg Q6HR NEB 05/28/25 06:00 05/28/25 09:07 2.5 MG Ipratropium [place] 0.5 mg Q6HR NEB 05/28/25 06:00 05/29/25 12:07 0.5 MG Doxycycline Hyclate 100 ml @ 50 mls/hr Q12H IV 05/28/25 12:30 05/29/25 13:43 50 MLS/HR Enoxaparin Sodium 40 mg DAILY SC 05/29/25 10:00 Ondansetron HCl 4 mg Q4HPRN PRN IV 05/28/25 17:00 Promethazine HCl 12.5 mg Q4HP PRN PO 05/29/25 12:00 Examination General Appearance: Alert, Oriented X3, Cooperative, No acute distress HEENT: Atraumatic, PERRLA, EOMI, Mucous membrane moist/pink Respiratory: Left lower zone crackles Cardiovascular: Regular rate, Normal S1, Normal S2, No murmurs, no chest wall tenderness Abdominal: Normal bowel sounds, Soft, No tenderness, No hepatospenomegaly, No masses Extremities: No clubbing, No cyanosis, No edema, Normal pulses, No tenderness/swelling Skin: No rashes, No breakdown, No significant lesion Neuro: Normal gait, Normal speech, Strength at 5/5 X4 ext, Normal tone, Sensation intact, Cranial nerves 3-12 NL, Reflexes 2+ Psych/Mental Status: Mental status NL, Mood NL laboratory and microbiology Laboratory Tests 05/29/25 05:10 Test 05/29/25 05:10 Range/Units Serum Glucose 88 74-106 mg/dL Microbiology Date/Time Source Procedure Growth Status 05/28/25 17:20 Sputum Gram Stain - Final Resulted 05/28/25 17:20 Sputum Respiratory Culture - Preliminary Resulted 05/28/25 07:34 Nose MRSA Screen - Final Complete 05/27/25 18:19 Blood Blood Culture - Preliminary NO GROWTH AFTER 24 HOURS OF INCUBATION. Resulted Labs and/or images reviewed: Labs reviewed by me, Image(s) reviewed by me Problem List/Assessment/Plan Problem List/Assessment/Plan Sepsis, due to pneumonia Pneumonia, likely due to Gram-positive/Gram-negative pneumonia Abnormal uterine bleeding Precipitous hemoglobin dropped, likely due to hemodilution Hypokalemia Asymptomatic bacteriuria Ruled out COVID-19/influenza * Chest x-ray 05/28 shows left lower lobe zone infiltration, on subsequent chest x-ray on 05/29, shows same area infiltration, worsening Plan/recommendation: * Empiric antibiotic Rocephin and azithromycin * IV fluid * Pain management * Sputum culture/blood culture * Breathing treatment DIET: Regular with a DVT PROPHYLAXIS: Lovenox CODE STATUS: Goal of care discussed for more than 18 minutes, full code DISPOSITION: Med/surge Patient's status and plan discussed with the patient. Case discussed with Dr. Nixon. Plan discussed with: Patient, Other My Orders My Orders Orders - GRISEL ALFONSO Procedure Category Date Status Time Enoxaparin Sodium PHA 05/29/25 In Process (Lovenox) 10:00 Ondansetron Hcl PHA 05/28/25 In Process (Zofran) 17:00 Chest Xray 1 View XY 05/29/25 Resulted 11:42 Promethazine Plain PHA 05/29/25 In Process Syrup (Phenergan Plai 12:00 Date of Service: May 29, 2025 Billing Provider: EZIO ALBERT MD Common Visit Codes: [id number] INP/OBS CARE(HIGH) GRISEL ALFONSO RESDIENT May 29, 2025 15:07
--- NOTE | 2025-05-29 17:00 | DVH ---
INDICATION: Abnomal vaginal bleeding TECHNIQUE: Multiple real-time grayscale transabdominal sonographic images along with color and duplex Doppler of the uterus and ovaries were obtained. COMPARISON: None FINDINGS: The uterus measures 8.61 x by 4.88 x 4.9. cm. Volume of the uterus is 108 mL trace of fluid is noted in the cul-de-sac. The endometrial stripe measures 0.77 cm. The right ovary measures 3.25 x 2.52 x 3.44 cm. Right ovarian volume is 14.77 mL. Follicle in the right ovary measures 1.48 x 0.83 x 1.33 cm. The left ovary measures 2.38 x 2.32 by 2.73 cm. Volume of the left ovary is 7.87 mL. Subsequent color and duplex Doppler interrogation of the ovaries demonstrated symmetric vascular flow to both ovaries, though this does not exclude the possibility of torsion due to the dual blood supply. IMPRESSION: 1. Uterus measures 8.61 by 4.88 x 4.9 cm. 2. Follicles noted in both ovaries.
[2025-05-30] VITALS (13 sets, daily range): BP systolic 98–115; BP diastolic 58–70; PULSE 69–103; RESP 16–18; TEMP 97.5–98.2; O2SAT 94–100
[2025-05-30 07:52] LABS: Hematocrit 29.2 % (36.0-46.0); Hemoglobin 9.7 g/dL (12.2-16.2); Mean Corpuscular Hemoglobin 27.3 pg (28.0-32.0); Mean Corpuscular Volume 82.0 fL (80.0-100.0); Nucleated Red Blood Cells % 0.0 %
[2025-05-30 07:55] LABS: Alanine Aminotransferase 13 U/L (7-40); Albumin 3.4 g/dL (3.2-4.8); Alkaline Phosphatase 51 U/L (46-116); Anion Gap 12 (5-15); BUN/Creatinine Ratio 11.9 (10.0-20.0); Carbon Dioxide 28 mmol/L (20-31); Chloride 103 mmol/L (98-107); Glucose 79 mg/dL (74-106); Potassium 4.1 mmol/L (3.5-5.1); Sodium 143 mmol/L (136-145); Total Protein 6.2 g/dL (5.7-8.2)
[2025-05-30 07:57] LABS: Bilirubin, Total 0.3 mg/dL (0.2-1.0); Blood Urea Nitrogen 7 mg/dL (9-23); Calcium 8.6 mg/dL (8.7-10.4)
[2025-05-30] MEDS ORDERED: PROM25TA10 PO (13:47)
[2025-05-30] MEDS ORDERED: AUG875T PO (13:47)
[2025-05-30] MEDS ORDERED: DOXY1CAP58 PO (13:47)
--- NOTE | 2025-05-30 16:55 | DVHDSRES ---
Discharge Summary Date of Admission Resident Creating Document: GRISEL ALFONSO May 27, 2025 at 22:48 Date of Discharge: May 30, 2025 Labs/Diagnostic Data: Laboratory Results Test 05/30/25 06:20 05/29/25 12:53 05/29/25 05:10 05/28/25 07:39 White Blood Count 3.8 10^3/uL (4.4-10.8) Red Blood Count 3.56 10^6/uL (4.0-5.20) Hemoglobin 9.7 g/dL (12.2-16.2) Hematocrit 29.2 % (36.0-46.0) Mean Corpuscular Volume 82.0 fL (80.0-100.0) Mean Corpuscular Hemoglobin 27.3 pg (28.0-32.0) Mean Corpuscular Hemoglobin Concent 33.3 g/dL (32.0-36.0) Red Cell Distribution Width 15.4 % (11.8-14.3) Platelet Count 352 10^3/uL (140-450) Mean Platelet Volume 8.5 fL (6.9-10.8) Neutrophils (%) (Auto) 60.6 % (37.0-80.0) Lymphocytes (%) (Auto) 26.6 % (10.0-50.0) Monocytes (%) (Auto) 9.3 % (0.0-12.0) Eosinophils (%) (Auto) 3.0 % (0.0-7.0) Basophils (%) (Auto) 0.5 % (0.0-2.0) Neutrophils # (Auto) 2.3 10 ^3/uL (1.6-8.6) Lymphocytes # (Auto) 1.0 10 ^3/uL (0.4-5.4) Monocytes # (Auto) 0.4 10 ^3/uL (0-1.3) Eosinophils # (Auto) 0.1 10 ^3/uL (0-0.8) Basophils # (Auto) 0 10 ^3/uL (0-0.2) Nucleated Red Blood Cells 0.0 % Sodium Level 143 mmol/L (136-145) Potassium Level 4.1 mmol/L (3.5-5.1) Chloride Level 103 mmol/L (98-107) Carbon Dioxide Level 28 mmol/L (20-31) Anion Gap 12 (5-15) Blood Urea Nitrogen 7 mg/dL (9-23) Creatinine 0.59 mg/dL (0.550-1.02) Glomerular Filtration Rate Calc 121 mL/min (>90) BUN/Creatinine Ratio 11.9 (10.0-20.0) Serum Glucose 79 mg/dL (74-106) Calcium Level 8.6 mg/dL (8.7-10.4) Total Bilirubin 0.3 mg/dL (0.2-1.0) Aspartate Amino Transferase (AST) 21 U/L (13-40) Alanine Aminotransferase (ALT) 13 U/L (7-40) Alkaline Phosphatase 51 U/L (46-116) Total Protein 6.2 g/dL (5.7-8.2) Albumin 3.4 g/dL (3.2-4.8) Iron Level 22 ug/dL (50-170) Total Iron Binding Capacity 219 ug/dL (250-425) Percent Iron Saturation 10.0 % (15-50) Ferritin 193.1 ng/mL (10-291) Beta HCG, Quantitative 0.9 mIU/mL (1.5-4.2) Prothrombin Time 11.8 sec (9.3-11.8) Prothrombin Time INR 1.13 (0.9-1.15) Activated Partial Thromboplast Time 30.7 SEC (24.5-34.5) Hemoglobin A1c 5.6 % A1C (<5.7) Magnesium Level 2.1 mg/dL (1.6-2.6) C-Reactive Protein High Sensitivity 7.51 mg/dL (<1.0) Vitamin B12 Level 382 pg/mL (211-911) Vitamin D 25-Hydroxy 27.2 ng/mL (30.0-100) Thyroid Stimulating Hormone (TSH) 1.83 uIU/mL (0.55-4.78) Test 05/28/25 00:09 05/27/25 18:19 05/27/25 18:11 Influenza Type A Antigen Negative (Negative) Influenza Type B Antigen Negative (Negative) SARS-CoV-2 Antigen (Rapid) Negative (NEGATIVE) Lactic Acid Level 1.3 mmol/L (0.4-2.0) Troponin I High Sensitivity < 3 ng/L (</=34) Urine Color Yellow (Yellow) Urine Clarity Clear (Clear) Urine pH 7.5 (5.0-9.0) Urine Specific [place] 1.015 (1.001-1.035) Urine Protein Trace (Negative) Urine Ketones Trace (Negative) Urine Blood 2+ /uL (Negative) Urine Nitrite Negative (Negative) Urine Bilirubin Negative (Negative) Urine Urobilinogen Normal mg/dL (Negative) Urine Leukocyte Esterase 2+ /uL (Negative) Urine RBC 1 /hpf (0 - 4) Urine Microscopic WBC 16 /HPF (0-5) Urine Squamous Epithelial Cells Few /hpf (<5) Urine Bacteria None seen /hpf (None Seen) Urine Glucose Normal mg/dL (Normal) Urine Test Negative (Negative) Other Laboratory Tests 05/30/25 06:20 Brief Hx & Hospital Course: HISTORY OF PRESENT ILLNESS: 34-year-old female presents to the ER with a chief complaint of fever, chills, productive cough for the past week. Patient reports that she started to experience fever, chills, hot and cold, along with muscle aches, bilateral knee pain, shooting pains, which worsened and patient started to experience cough with whitish phlegm. She does not have a PCP, she went to the urgent care was prescribed steroids and cough suppressant which he never took. She denies any traveling history, recent sick contacts or anyone sick at home. Denies orthopnea or PND. Also reports suprapubic pain on coughing but no dysuria, discharge or foul-smelling. Also reports irregular periods for the 1st time during the sickness episode, currently she is spotting HOSPITAL COURSE: The patient was admitted on the line of sepsis due to pneumonia. The patient was started on empiric antibiotic of Rocephin and doxycycline. Blood culture, sputum culture performed, showed no growth. Patient was also given IV fluid, pain management and antitussive medication during hospital course. Chest x-ray shows, left lower lobe infiltration and, on subsequent to follow up chest x-ray, showed same finding. Patient also was complaining of per vaginal abnormal bleeding, pelvic ultrasound performed, showed no significant pathology. On 05/30, the patient was feeling better, chest pain, shortness of breaths had improved. Discharge plan discussed with the patient and the patient discharged home. DISCHARGE PLAN: Follow up with the PCP within 1 week of the discharge. Follow up with the discharge Clinic within 1 week of the discharge. Follow up with the OBGYN on outpatient basis. Doxycycline 100 mg b.i.d. for 7 days Augmentin 875 mg b.i.d. for 7 days Antitussives DISCHARGE PLAN: Sepsis, due to pneumonia Pneumonia, likely due to Gram-positive/Gram-negative pneumonia Abnormal uterine bleeding Precipitous hemoglobin dropped, likely due to hemodilution Hypokalemia Asymptomatic bacteriuria Ruled out COVID-19/influenza Condition at Discharge: Good Final Diagnosis/Problems List Sepsis, due to pneumonia Pneumonia, likely due to Gram-positive/Gram-negative pneumonia Abnormal uterine bleeding Precipitous hemoglobin dropped, likely due to hemodilution Hypokalemia Asymptomatic bacteriuria Ruled out COVID-19/influenza Discharge Disposition: Home Discharge Instruct/Medications Diet: Regular Activity: No Restrictions, As Tolerated Follow Up/Referral: Follow up with the PCP within 1 week of the discharge. Follow up with the discharge Clinic within 1 week of the discharge. Follow up with the OBGYN on outpatient basis due to vaginal bleeding Medications: Doxycycline 100 mg 2 times a day for 7 days Augmentin 875 mg 2 times a day for 7 days Promethazine tablet as needed for cough q.6 hours for 5 days Scheduled Amoxicillin & Pot Clavulanate (Augmentin Tablet), 875 MG PO BID Doxycycline (Monohydrate) (Doxycycline), 100 MG PO BID Promethazine Hcl (Promethazine Hcl), 1 TAB PO Q6HPRN Discharge Statement: "Patient was advised to return to the ER or call 911 if any headaches, dizziness, shortness of breath, chest pain, abdominal pain, bleeding, fevers, or worsening of medical condition. Patient was counseled about treatment plan, medications, possible side effects, patientverbalized understanding. All questions were answered to the best of my ability. This discharge took greater then 30 minutes in planning, reviewing documentation, counseling the patient, and discussing with other team members." ASSESSMENT ASSESSMENT Assessment Pneumonia GRISEL ALFONSO [facility] May 30, 2025 16:55
== END 2025-05-30 17:40 | disposition home or self-care (01) | DRG 720 ==
LOC: ER 17:28 → OVERFLOW 22:48 → TELE-WESTW 05-28 21:24
PROVIDERS: ADMIT Student in an Organized Health Care Education/Training Program; ATTEND Student in an Organized Health Care Education/Training Program
DX: A41.50 Gram-negative sepsis, unspecified (principal); J15.69 Pneumonia due to other Gram-negative bacteria; J15.9 Unspecified bacterial pneumonia; R71.0 Precipitous drop in hematocrit; Z20.822 Contact with and (suspected) exposure to COVID-19; N93.9 Abnormal uterine and vaginal bleeding, unspecified; E87.6 Hypokalemia; Z88.0 Allergy status to penicillin
CPT/HCPCS: 36415; 71045; 76856; 80048; 80053; 81001; 81025; 82306; 82607; 82728; 83036; 83540; 83550; 83605; 83735; 84443; 84484; 84702; 85025; 85610; 85730; 86141; 87040; 87070; 87077; 87081; 87186; 87205; 87426; 87804; 94640; 96365; 96375; G0378; J0131; J2405